=== PATIENT | male | born 1965 | race Caucasian/White ===

== ENCOUNTER 2016-09-06 | Emergency (ER) | payer SELFPAY ==
[~2016-09-06] VITALS: Ht 170.2 cm; Wt 90.7 kg
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
--- NOTE | 2016-09-06 | NUR ---
BIBA TO BED 1
[2016-09-06] MEDS ORDERED: NALOXONE PFS 2 MG/2 ML SYR ONE (00:06)
--- NOTE | 2016-09-06 00:15 | NUR ---
DR. MARK CALL AT [id number]
--- NOTE | 2016-09-06 00:30 | NUR ---
CALL [facility] , SPOKE WITH NANCY ; CASE NO. [id number].
--- NOTE | 2016-09-06 00:42 | NUR ---
CALLED [facility], SPOKE WITH MATEUS, AWAITING FOR CALL BACK.
--- NOTE | 2016-09-06 01:05 | NUR ---
PER [facility] LUTHER; THEY ALREADY CALLED CREDIT CONTROL ASSISTANT AND STATES CREDIT CONTROL ASSISTANT IS EN ROUTE
--- NOTE | 2016-09-06 01:49 | NUR ---
[facility] CALLED BACK; SPOKE WITH CARROLL TO VERIFY PATIENT'S INFORMATION. STATES THEY WILL CALL BACK IN AN HOUR TO F/U
--- NOTE | 2016-09-06 02:55 | NUR ---
KATIE BLAKE FROM [facility]EDIT CORRESPONDENCE CLERK ARRIVED AT 0255AM
--- NOTE | 2016-09-06 03:49 | NUR ---
[facility] CALLED BACK; F/U WITH BRANNON
--- NOTE | 2016-09-06 03:53 | NUR ---
CALLED PATIENT'S [facility] [phone] THREE TIMES; NO CALL BACK. LEFT VOICEMAIL TO CALL BACK
--- NOTE | 2016-09-06 04:09 | NUR ---
[facility] TAKE BODY AT [phone]
--- NOTE | 2016-09-06 05:50 | NUR ---
[facility] CALLED BACK, MADE AWARE OF PATIENT STATUS.
== END 2016-09-06 00:15 | disposition expired ==
LOC: MED
DX: I46.9 Cardiac arrest, cause unspecified (principal)
CPT/HCPCS: 31500; 99285; J2310